=== PATIENT | female | born 1995 | race Caucasian/White ===

== ENCOUNTER 2022-03-07 23:57 | Outpatient (CLI) | payer BC, SELFPAY ==
[2022-03-08 00:11] VITALS: BP 109/78; PULSE 88
[2022-03-08 00:14] VITALS: RESP 16; TEMP 36.8
[2022-03-08 01:08] LABS: Appearance Urine Turbid (Clear); Bilirubin Urine Negative (Negative); Blood Urine Negative (Negative); Color Urine Yellow (Yellow); Glucose Urine Negative (Negative); Ketones Urine Negative (Negative); Leukocyte Esterase Urine 1+ (Negative); Nitrite Urine Negative (Negative); Protein Urine Negative (Negative); Specific Gravity Urine 1.015 (1.000-1.030); Urobilinogen Urine 0.2 (0.2-1.0)
[2022-03-08 01:49] LABS: RBC Urine 0-2 (0-2); Squamous Epithelial Cell Urine Few (None-Few)
[2022-03-08 01:58] LABS: Clue Cells No Clue Cells Seen (None Seen); Trichomonas No Trichomonas Seen (None Seen); Yeast No Yeast Seen (None Seen)
[2022-03-08] MEDS: LACTATED RINGERS 1000 ML 1,000 ML IV (02:56)
[2022-03-08] MEDS: BETAMETHASONE SOD PHOS/ACETATE 6 MG/ML ML 12 MG IM (04:37)
--- NOTE | 2022-03-08 08:01 | PC.OBNST ---
NST Note NST Note Start: 03/08/22 00:04 Freq: ONCE Status: Active Protocol: Document 03/08/22 07:57 MMB (Rec: 03/08/22 08:00 MMB [id number]) NST Note 2 Para (# of births) 1 EDC 04/25/22 Patient Presented with Complaint(s) of Contractions/cramping Reactive Yes Appropriate for Gestational Age Yes RN Kandace Downey RN Date 03/08/22 Reactive Yes Appropriate for Gestational Age Yes RN Dyana Velasco RN Date 03/08/22 OB NST charge Yes Provider Evaluation of EFM Strip: Reactive: [] Appropriate for Gestational Age: [] Comments:
[2022-03-08 15:05] LABS: Fetal Fibronectin* Negative (Negative)
[2022-03-08 23:24] LABS: Strep B DNA Probe NEGATIVE (Negative)
== END 2022-03-08 07:06 | disposition home or self-care (01) ==
LOC: OB OUT 23:58 → OB 03-08 00:03
PROVIDERS: PCP Obstetrics & Gynecology; Visit Provider Family Medicine
DX: O47.03 False labor before 37 completed weeks of gestation, third trimester (principal); Z36.85 Encounter for antenatal screening for Streptococcus B; Z3A.33 33 weeks gestation of pregnancy
CPT/HCPCS: 59025; 81003; 81015; 84112; 87081; 87210; 87653; 96360; 96372; J0702; J7120

== ENCOUNTER 2022-03-09 05:00 | Outpatient (CLI) | payer BC, SELFPAY ==
[2022-03-09] MEDS: BETAMETHASONE SOD PHOS/ACETATE 6 MG/ML ML 12 MG IM (05:00)
== END 2022-03-09 05:10 | disposition home or self-care (01) ==
LOC: OB OUT 07:39 → OB CLI 07:41 → OB 03-10 08:22
PROVIDERS: PCP Obstetrics & Gynecology; Visit Provider Family Medicine
DX: O34.211 Maternal care for low transverse scar from previous cesarean delivery (principal)
CPT/HCPCS: 99211; J0702

== ENCOUNTER 2022-03-24 15:45 | Outpatient (CLI) | payer BC, SELFPAY ==
[2022-03-24] VITALS (7 sets, daily range): BP systolic 99–124; BP diastolic 55–84; PULSE 92–103; RESP 18; TEMP 37.1; O2SAT 97–98
[2022-03-24 16:36] LABS: Appearance Urine Clear (Clear); Bilirubin Urine Negative (Negative); Blood Urine Negative (Negative); Color Urine Yellow (Yellow); Glucose Urine Negative (Negative); Ketones Urine Negative (Negative); Leukocyte Esterase Urine 2+ (Negative); Nitrite Urine Negative (Negative); Protein Urine Negative (Negative); Specific Gravity Urine 1.015 (1.000-1.030); Urobilinogen Urine 0.2 (0.2-1.0)
[2022-03-24 16:40] LABS: Amnisure Rom* Negative
[2022-03-24 16:45] LABS: RBC Urine 0-2 (0-2)
[2022-03-24 16:46] LABS: Bacteria Urine Few; Squamous Epithelial Cell Urine Few (None-Few)
--- NOTE | 2022-03-24 18:24 | PC.OBNST ---
NST Note NST Note Start: 03/24/22 15:58 Freq: ONCE Status: Active Protocol: Document 03/24/22 18:21 MMB (Rec: 03/24/22 18:24 MMB [id number]) NST Note 2 Para (# of births) 1 EDC 04/25/22 Patient Presented with Complaint(s) of Leaking fluid,Decreased movement,Other Other Complaints Sediment in urine with suprapubic pain, loose stools, seeing spots, and blisters. Reactive Yes Appropriate for Gestational Age Yes SANTANA Wiley RN Date 03/24/22 Reactive Yes Appropriate for Gestational Age Yes SANTANA Simental RN OB NST charge Yes Complete NST Note via Write Note Yes The provider's electronic signature indicates the NST is reactive/appropriate for gestational age. *Note to provider: If an addendum is required, open the patient's chart and click on the note under the Nurse/Allied Health tab.
== END 2022-03-24 17:42 | disposition home or self-care (01) ==
LOC: OB OUT 15:50 → OB 15:54
PROVIDERS: PCP Obstetrics & Gynecology; Visit Provider Surgery
DX: O36.8130 Decreased fetal movements, third trimester, not applicable or unspecified (principal); Z3A.33 33 weeks gestation of pregnancy
CPT/HCPCS: 59025; 81003; 81015; 84112; 87086; 99213

== ENCOUNTER 2022-04-16 05:11 | Inpatient (IN) | payer BC, SELFPAY ==
[2022-04-16] VITALS (21 sets, daily range): BP systolic 95–132; BP diastolic 58–87; PULSE 77–142; RESP 15–20; TEMP 36.6–37.2; O2SAT 97–99; BMI 35.9
[2022-04-16] MEDS: ONDANSETRON 2 MG/ML inj 4 MG IV (06:05)
[2022-04-16] MEDS: LACTATED RINGERS 1000 ML 1,000 ML 500 ML IV (06:12)
[2022-04-16 06:17] LABS: SARS PCR* Negative SARS-CoV-2 (Negative)
[2022-04-16 06:19] LABS: Basophils Percent Auto 0.1 % (0.0-3.0); Eosinophils Percent Auto 0.6 % (0.0-7.0); Hematocrit 35.2 % (33.0-51.0); Hemoglobin* 11.7 gm/dL (12.0-16.0); Immature Granulocytes Abs Auto 0.23 K/uL (0.00-0.30); Lymphocytes Percent Auto 13.6 % (20-44); Mean Corpuscular HGB Conc 33 gm/dL (32-36); Mean Corpuscular Hemoglobin 28 pg (26-34); Mean Corpuscular Volume 85 fL (80-100); Monocytes Percent Auto 5.7 % (0.0-11.0); Neutrophils Percent Auto 78.1 % (42.0-72.0); Platelet Count* 210 K/uL (140-440); RDW Coefficient of Variation % 13.9 % (11.5-15.5); Red Blood Count 4.13 m/uL (4.00-5.20); White Blood Count* 12.02 K/uL (4.50-11.00)
[2022-04-16 06:23] LABS: Slide Review Reflex No
[2022-04-16] MEDS: OXYTOCIN 10 UNIT/ML INJ IM (09:03)
[2022-04-16] MEDS: LIDOCAINE 1% MDV 20 ML INJECTION (09:08)
--- NOTE | 2022-04-16 09:34 | P.OBPRC_ITS ---
Procedure Delivery date: 04/16/22 Procedure Done: only Procedure Details: The patient is a 26 year-old admitted on 04/16/2022 at 38 Weeks, 5 Days gestation for spontaneous onset of labor.? Labor began with spontaneous rupture of membranes while the patient was at home at 2:45 a.m, clear fluid. She presented for care at 5:00 a.m. this morning. Cervical exam on admission was 3 cm/80 % effaced/-2 station with membranes ruptured in vertex presentation.? Contractions were every 2-4 minutes.? heart rate demonstrated baseline 150 bpm with moderate variability, + accelerations, - decelerations; a category 1 tracing. ? Labor Analgesia:? None ? Pitocin:? No ? Labor onset:? 0545 ? Complete:? 34 ? Pushing:? 34 ? heart tones during second stage were 120s bpm baseline with variable and some late decelerations to the 80s, followed by good return to baseline. Fetus was in an OP position for most of the 2nd stage. Pushing was done in varied positions, including right lateral recumbent, recumbent, squatting, and hands and knees. ? At 0856 a viable male delivered in vertex OA presentation rotated during the last contraction from OP while the mother was in hands knees position over second-degree midline perineal laceration via spontaneous vaginal delivery.? Infant was placed on maternal abdomen.? Cord was clamped and cut after a 30 second delay.? The was then transferred to the warmer where he received for breaths and CPAP. Nose and mouth were bulb suctioned.? Infant was evaluated by Peds, see note. weight pending.? Apgars pending..? Shoulder dystocia: No.? Nuchal cord: No. ? Placenta delivered spontaneously and complete at 0856 with a 3 vessel cord. ? Mother and were stable after delivery. ? Lacerations:? Second-degree midline perineal, repaired with 3-0 chromic. ? Blood loss: 50 mL. Blood loss measurement type: QBL ? Sponge and needles counts are correct. Events: Previous and Covid Infection in Intrapartal Events: Excessive Bleeding Delivery monitor: external FHT and external uterine Route of delivery: Laceration description: Perineal - 2nd Degree Delivery repair: Chromic (3-0) Estimated blood loss (mL): 50 Anesthesia type: None Disposition: floor [facility] Gender: Male presentation: vertex Placental Delivery Description: Spontaneous (adherant clot suggestive of partial abruption) Cord Description: 3 Vessels
--- NOTE | 2022-04-16 11:56 | W.PM.LDBA ---
Subjective History of Present Illness Time Seen by Provider: 07:05 Date Seen: 04/16/22 Narrative: Patient is being admitted to Labor and Delivery for spontaneous onset of labor. She is a 26 year old at 38 5/7 weeks gestation. Her full history and physical was dictated by [] on []. Please see this for details. [] OB - H&P: Exam Physical Exam: Vital signs: Temp Pulse Resp BP Pulse Ox 97.9 F 142 H 16 122/65 97 04/16/22 07:08 04/16/22 10:51 04/16/22 04:13 04/16/22 10:51 04/16/22 08:46
--- NOTE | 2022-04-16 11:57 | PM.OBHPLI ---
OB - H&P: HPI Labor/Induction History of Present Illness Time Seen by Provider: 07:05 Date Seen: 04/16/22 Chief Complaint: Labor following spontaneous rupture of membranes. Patient desires trial of labor after section. Chief complaint: Labor : 2 Para: 1 Date of last menstrual period: 07/19/21 Estimated date of delivery: 04/25/22 Gestational age based on last menstrual period: 38 Narrative: The patient is a 26 year old 2 para 1001 at 38 5/7 weeks gestation by certain LMP, who presents with labor following spontaneous rupture of membranes. She experienced a gush of clear fluid from the vagina at 2:45 a.m.. Upon her arrival to the center at 5:00 a.m., she was sil at 2-4 minute intervals. History of Present Dating criteria: based on LMP care: good care Ultrasounds: normal 1st trimester US and normal mid trimester US complications: other (History of COVID infection , history of prior low transverse section) complications comment: also anxiety and depression, ocular migraines, subclinical hypothyroism Labs Blood type: A (+) positive Rubella: immune RPR/VDLR: nonreactive GBS status: negative HBsAG: negative Review of Systems Status of ROS: Reports: 10 or more systems reviewed and unremarkable except as noted in History and below Meds Home Medications and Allergies Home Medications Medication Instructions Recorded Confirmed Type ferrous sulfate 325 mg (65 mg mg PO 03/08/22 03/27/22 History iron) tablet,delayed release levothyroxine 25 mcg capsule mcg PO 03/08/22 03/27/22 History magnesium oxide 400 mg (241.3 mg mg DAILY 03/08/22 03/27/22 History magnesium) tablet sertraline 100 mg tablet 150 mg DAILY 03/08/22 03/27/22 History sertraline 50 mg tablet mg DAILY 03/08/22 03/27/22 History multivitamin no.47-iron fum 27 cap PO 03/27/22 03/27/22 History mg-folate no.1 1 mg-dha 300 mg capsule (PNV-DHA) Allergies Allergy/AdvReac Type Severity Reaction Status Date / Time No Known Allergies Allergy Verified 04/16/22 04:51 OB - H&P: Exam Physical Exam: Vital signs: Temp Pulse Resp BP Pulse Ox 97.9 F 142 H 16 122/65 97 04/16/22 07:08 04/16/22 10:51 04/16/22 04:13 04/16/22 10:51 04/16/22 08:46 Narrative: VITAL SIGNS: Noted above. GENERAL APPEARANCE: Alert cooperative white female in mild acute distress with contraction. MOOD AND AFFECT: Normal. CV: Heart regular rate and rhythm. PULM: Lungs clear to auscultation bilaterally. ABDOMEN: Soft, gravid, nontender. Fundal height is consistent with term gestation. The fetus is in a vertex presentation by Yonathan's. : Normal female external genitalia. Cervix was 3 cm dilated, 80% effaced, with vertex at a-2 station at the time of admission per nursing. EXTREMITIES: Without significant edema, nontender bilaterally. NEURO: Intact. OB - Results Labs Labs: Short CBC 04/16/22 Range/Units 05:45 WBC 12.02 H (4.50-11.00) K/uL Hgb 11.7 L (12.0-16.0) gm/dL Hct 35.2 (33.0-51.0) % Plt Count 210 (140-440) K/uL OB - Problem Based A/P Additional Plan (1) Previous delivery affecting , antepartum: Status: Acute (2) Spontaneous onset of labor: Status: Acute Plan Expectant management. Patient desires trial of labor after section is making good progress. Anticipated vaginal delivery. Procedures Vaginal Delivery presentation: vertex
[2022-04-16] MEDS: LEVOTHYROXINE 25 MCG TABLET PO (16:17)
[2022-04-16] MEDS: SERTRALINE 50 MG TABLET 150 MG PO (20:52)
[2022-04-16] MEDS: ACETAMINOPHEN 500 MG TABLET 1000 MG PO (20:53)
[2022-04-17 01:15] VITALS: BP 101/69; PULSE 96; RESP 16; TEMP 36.7; O2SAT 98
[2022-04-17 04:24] VITALS: BP 101/68; PULSE 90; RESP 16; TEMP 36.7
[2022-04-17 07:32] LABS: Hemoglobin* 10.9 gm/dL (12.0-16.0)
[2022-04-17] MEDS: DOCUSATE SODIUM 100 MG CAPSULE PO (07:40)
[2022-04-17] MEDS: LEVOTHYROXINE 25 MCG TABLET PO (07:41)
[2022-04-17 09:59] VITALS: BP 109/78; PULSE 90; RESP 15; TEMP 36.6
--- NOTE | 2022-04-17 10:07 | PM.OBDSVD1 ---
DS: Providers Provider Time Seen by Provider: 10:08 Date Seen: 04/17/22 Date of admission: 04/16/22 05:11 Primary care physician: Anastasiya Webster MD Admitting Clinician: Ronna Bermeo MD Attending Physician on discharge: Jorge Flower MD Date of Discharge: 04/17/22 DS: Diagnosis Discharge Diagnosis (1) Previous delivery affecting , antepartum: Status: Acute (2) Spontaneous onset of labor: Status: Acute (3) Perineal laceration during delivery: Status: Acute Exam Const: Vital Signs, click to edit/add: Vital Signs - 24 hr 04/16/22 10:22 04/16/22 10:51 04/16/22 11:05 Temperature 97.9 F Pulse Rate 112 H 142 H Pulse Rate [Pulse Oximeter] Respiratory Rate 15 Blood Pressure 113/58 L 122/65 Blood Pressure [Ri ght Arm] Pulse Oximetry Oxygen Delivery Me thod 04/16/22 13:00 04/16/22 16:25 04/16/22 20:38 Temperature 98.9 F 98.6 F 98.5 F Pulse Rate Pulse Rate [Pulse Oximeter] 107 H 97 97 Respiratory Rate 15 16 16 Blood Pressure Blood Pressure [Ri ght Arm] 117/78 117/76 108/73 Pulse Oximetry 97 97 Oxygen Delivery Me thod Room Air Room Air Room Air 04/17/22 01:15 04/17/22 04:24 04/17/22 09:59 Temperature 98.0 F 98.0 F 97.9 F Pulse Rate Pulse Rate [Pulse Oximeter] 96 90 90 Respiratory Rate 16 16 15 Blood Pressure Blood Pressure [Ri ght Arm] 101/69 101/68 109/78 Pulse Oximetry 98 Oxygen Delivery Me thod Room Air Room Air Documenting provider has reviewed patient's vital signs: yes Common normals: no apparent distress, healthy appearing and alert HENMT: Common normals: normocephalic Head and scalp: normocephalic Resp: Common normals: normal respiratory effort and no use of accessory muscles Cardio: Common normals: regular rate and peripheral pulses 2+ throughout Rate: regular rate Peripheral pulses: pulses 2+ throughout GI: Common normals: soft to palpation and non-tender Palpation: soft Extremity: Common normals: normal to inspection and full ROM Neuro: Common normals: CN's II-XII intact bilaterally Sensorium/orientation: alert Psych: Common normals: thought process normal and affect normal Thought process: normal thought process OB - DS: Summary Hospital Course Hospital Course: Francisca is a 26 year old now P 2001 who had a 04.16.2022 after SROM clear at 0245 on 04.16.2022. Second-degree perineal laceration repaired; QBL 50mL. Lochia is decreasing, no large clots. Reports minimal uterine or perineal pain. Bladder function normal. No N/V/D. Her male Shabbir was born at 38w4d GA. He required CPAP at , and is doing well now. He is well. Gender: Male Discharge Plan: Home Status at Discharge Cognitive/behavioral status at discharge: Describes mood as stable. Taking sertraline 150mg QD. Time Spent with Patient Time attestation: Total time spent providing and/or coordinating discharge services: Discharge Plan Discharge Disposition: Home, Self-Care Date of Admission: 04/16/22 05:11 Attending Provider on Discharge: Jorge Flower Primary Care Provider: Anastasiya Webster Condition: Stable Anticipated Discharge Date/Time: 04/17/22 10:23 Discharge Medications: New (DME) breast pump [[employer] Double Electric Breast] Device See Rx Instructions .ROUTE Qty: 1 0RF Rx Instructions: As directed Continued PNV-DHA 27 mg iron-1 mg -300 mg capsule PO sertraline 100 mg tablet 150 mg DAILY magnesium oxide 400 mg (241.3 mg magnesium) tablet DAILY ferrous sulfate 325 mg (65 mg iron) tablet,delayed release (DR/EC) PO Label Comments: TAKE ONE TABLET BY MOUTH EVERY DAY WITH A MEAL sertraline 50 mg tablet DAILY levothyroxine 25 mcg capsule PO Discharge Orders: Discharge Order (Routine); Ordered 04/17/22 Ordered By: Jorge Flower Patient Education: OB Vaginal/Breast Feeding Activity Level: Activity as Tolerated Discharge Diet: High Fiber Follow Up Appointments: Ronna Bermeo MD [Staff Physician] - Anastasiya Webster MD [Primary Care Provider] - Forms: [facility] Info Instructions DS:Data Additional Comments Additional comments: Got Tdap . Desires script for breast pump; printed. Will use OTC ibuprofen for perineal and uterine pain. Advised increased dietary fiber and fluids to keep stools soft. Continue dose of levothyroxine until visit. Continue PNV.
== END 2022-04-17 11:15 | disposition home or self-care (01) | DRG 560 ==
LOC: OB OUT 05:14 → OB 05:14
PROVIDERS: Admitting Provider Obstetrics & Gynecology; PCP Obstetrics & Gynecology; Visit Provider Obstetrics & Gynecology
DX: O34.211 Maternal care for low transverse scar from previous cesarean delivery (principal); O70.1 Second degree perineal laceration during delivery; Z86.16 Personal history of COVID-19; O99.284 Endocrine, nutritional and metabolic diseases complicating childbirth; E03.8 Other specified hypothyroidism; O99.344 Other mental disorders complicating childbirth; F41.9 Anxiety disorder, unspecified; F32.A Depression, unspecified; Z3A.38 38 weeks gestation of pregnancy; Z37.0 Single live birth
CPT/HCPCS: 36415; 85018; 85025; 86850; 86900; 86901; 87635; 88307; A9270; J2405; J2590; J7120

== ENCOUNTER 2024-03-11 10:30 | Outpatient (CLI) | payer BC, SELFPAY ==
[2024-03-11 10:54] VITALS: BP 119/60; PULSE 90
[2024-03-11 10:56] VITALS: PULSE 95; O2SAT 97
[2024-03-11 11:47] LABS: Appearance Urine Clear (Clear); Bilirubin Urine Negative (Negative); Blood Urine Negative (Negative); Color Urine Yellow (Yellow); Glucose Urine Negative (Negative); Ketones Urine Negative (Negative); Leukocyte Esterase Urine Negative (Negative); Nitrite Urine Negative (Negative); Protein Urine Negative (Negative); Specific Gravity Urine 1.015 (1.000-1.030); Urobilinogen Urine 0.2 (0.2-1.0)
[2024-03-11 11:57] LABS: Clue Cells No Clue Cells Seen (None Seen); Trichomonas No Trichomonas Seen (None Seen); Yeast No Yeast Seen (None Seen)
--- NOTE | 2024-03-11 12:02 | P.OBLDTN_ITS ---
OB - Triage/Final Diagnosis Visit Information Date Seen: 03/11/24 Narrative: The patient is a 28 year old 3 para 2 at 30.3 weeks gestation with past history of migraine headache, hypothyroidism, prediabetes, who presents with decreased movement. At home, has tried rest, cold beverage, and sugary food to stimulate movement, but did not have results. On the car ride to the hospital, did start noticing more movement. Has felt more here as well. Mom endorses a headache in her occipital region that has been coming and going for a few days. No new visual changes or dizziness (does have vision changes at baseline that have been previously evaluated). No abdominal pain. No changes in swelling. Mom notes that this morning, she felt cold and had shivering, had to take a warm shower, which is atypical for her. This has since resolved. Mom does have hx of hypothyroidism, has had TSH checked a few weeks ago and reports no recent changes in levothyroxine dose. Has had some increased urinary frequency. No dysuria or hematuria. Has also noticed changes in vaginal discharge - seems different color and more discharge. Reactive NST was obtained. UA and wet prep collected and were negative. Mom was given 1000 mg PO Tylenol for headache and felt comfortable with discharge home. Return precautions discussed. Evaluation Laboratory results: Laboratory Tests 03/11/24 Range/Units Unknown Urine Color Yellow (Yellow) Urine Appearance Clear (Clear) Urine pH 7.0 (5.0-8.5) Ur Specific [place] 1.015 (1.000-1.030) Urine Protein Negative (Negative) Urine Glucose (UA) Negative (Negative) Urine Ketones Negative (Negative) Urine Blood Negative (Negative) Urine Nitrite Negative (Negative) Urine Bilirubin Negative (Negative) Urine Urobilinogen 0.2 (0.2-1.0) Ur Leukocyte Esterase Negative (Negative) Vaginal Trichomonas No Trichomonas Seen (None Seen) Vaginal Yeast No Yeast Seen (None Seen) Vaginal Clue Cells No Clue Cells Seen (None Seen) Vital signs: Vital Signs - 24 hr 03/11/24 10:54 03/11/24 10:56 Pulse Rate 90 Blood Pressure 119/60 Pulse Oximetry 97 Comments: Gen: alert, pleasant, NAD Fetus (Single) Heart Rate Baseline: 140 [facility] Variability: Moderate (6-25) Monitor Accelerations: Present Monitor Decelerations: None Final Diagnosis (1) 30 weeks gestation of : Status: Acute Total Time Spent Total Time Spent: 45 minutes spent reviewing chart, seeing patient, reviewing labs, and documenting on day of encounter.
--- NOTE | 2024-03-11 12:43 | PC.OBNST ---
NST Note NST Note Start: 03/11/24 10:43 Freq: ONCE Status: Active Protocol: Document 03/11/24 12:41 CUDDYH (Rec: 03/11/24 12:42 CUDDYH [id number]) NST Note 3 Para (# of births) 2 EDC 05/17/24 Gestational Age In Weeks & Days 30 Weeks & 3 Days Patient Presented with Complaint(s) of Decreased movement Reactive Yes Appropriate for Gestational Age Yes RN Yazmin Velasco RN Date 03/11/24 Reactive Yes Appropriate for Gestational Age Yes RN Dr. Lovell DO Date 03/11/24 OB NST charge Yes Complete NST Note via Write Note Yes The provider's electronic signature indicates the NST is reactive/appropriate for gestational age. *Note to provider: If an addendum is required, open the patient's chart and click on the note under the Nurse/Allied Health tab.
== END 2024-03-11 11:58 | disposition home or self-care (01) ==
LOC: OB OUT 10:31 → OB 10:34
PROVIDERS: Visit Provider Family Medicine
DX: O36.8130 Decreased fetal movements, third trimester, not applicable or unspecified (principal); Z3A.30 30 weeks gestation of pregnancy
CPT/HCPCS: 59025; 81003; 87210; G0463

== ENCOUNTER 2024-03-27 11:33 | Outpatient (CLI) | payer BC, SELFPAY ==
[2024-03-27 11:37] VITALS: PULSE 80; O2SAT 98
[2024-03-27 11:43] VITALS: BP 126/78; PULSE 97
[2024-03-27 12:20] VITALS: RESP 16; TEMP 36.7
--- NOTE | 2024-03-27 12:24 | PC.OBNST ---
NST Note NST Note Start: 03/27/24 11:46 Freq: ONCE Status: Active Protocol: Document 03/27/24 12:22 BRYCE (Rec: 03/27/24 12:24 BRYCE Desktop) NST Note 3 Para (# of births) 2 EDC 05/17/24 Gestational Age In Weeks & Days 32 Weeks & 5 Days Patient Presented with Complaint(s) of Other Other Complaints complaints of weak, faint, dizzy feeling with episodes of racing heart rate and feeling like going to have a panic attack. C/o Left abdominal itching. Reactive Yes Appropriate for Gestational Age Yes RN Maricruz Preciado RN Date 03/27/24 Reactive Yes Appropriate for Gestational Age Yes SANTANA Velasco RN Date 03/27/24 OB NST charge Yes Complete NST Note via Write Note Yes The provider's electronic signature indicates the NST is reactive/appropriate for gestational age. *Note to provider: If an addendum is required, open the patient's chart and click on the note under the Nurse/Allied Health tab.
[2024-03-27 13:03] LABS: Hemoglobin* 11.6 gm/dL (12.0-16.0)
[2024-03-27 13:24] LABS: Alanine Aminotransferase* 13 U/L (4-35); Aspartate Amino Transferase* 19 U/L (12-35)
[2024-03-28 23:58] LABS: Bile Acids, Total 4 umol/L (0-10)
== END 2024-03-27 12:30 | disposition home or self-care (01) ==
LOC: OB OUT 11:34 → OB 11:34
PROVIDERS: Visit Provider Family Medicine
DX: O26.893 Other specified pregnancy related conditions, third trimester (principal); R42 Dizziness and giddiness; I49.9 Cardiac arrhythmia, unspecified; Z3A.32 32 weeks gestation of pregnancy
CPT/HCPCS: 36415; 59025; 82239; 84443; 84450; 84460; 85018; G0463

== ENCOUNTER 2024-05-12 11:37 | Inpatient (IN) | payer BC, SELFPAY ==
[2024-05-12] VITALS (17 sets, daily range): BP systolic 113–133; BP diastolic 60–88; PULSE 71–94; RESP 16–17; TEMP 36.8–37.5; O2SAT 97; BMI 37.0
--- NOTE | 2024-05-12 12:29 | P.OBHP_ITS ---
OB - H&P: HPI Labor/Induction History of Present Illness Time Seen by Provider: 10:30 Date Seen: 05/12/24 Chief Complaint: The patient is a 28 year old 3 para 2 at 39.2 weeks gestation by LMP and consistent with 6 week ultrasound, who presents with for elective IOL given favorable cervix and long dstance from hospital. She is a TOLAC. Had successful with 2nd. First baby was delivered by c- section for breech position. Chief complaint: Elective IOL : 3 Para: 2 Date of last menstrual period: 08/11/23 Estimated date of delivery: 05/17/24 Gestational age based on last menstrual period: 39 Indications for induction: other (advanced dilation with TOLAC/elective) Narrative: Francisca Christensen is a 28 year old 3 para 2 at 39.2 weeks gestation by LMP and consistent with 6 week ultrasound, who presents with for elective IOL given favorable cervix and long dstance from hospital. She has been sil a lot at home. No gushes of fluid or bleeding. Reports normal movement. She is a TOLAC. Had successful with 2nd. First baby was delivered by c- section for breech position. Last growth showed 48%ile. She had growth restriction 6%ile that resolved History of Present Dating criteria: based on LMP (and 6 week US) care: none Ultrasounds: normal 1st trimester US and abnormal US findings Abnormal ultrasound findings: had growth restriction that resolved. Most recent growth was 28%ile. Narrative: Subclinical hypothyroidism, visual snow syndrome, anxiety Labs Blood type: A (+) positive Rubella: immune RPR/VDLR: nonreactive GBS status: negative HBsAG: negative Review of Systems Status of ROS: Reports: 10 or more systems reviewed and unremarkable except as noted in History and below Meds Home Medications and Allergies Home Medications ?Medication ?Instructions ?Recorded ?Confirmed ?Type levothyroxine 25 mcg capsule 25 mcg PO ONCE 03/08/22 05/12/24 History sertraline 100 mg tablet 200 mg PO DAILY 03/08/22 05/12/24 History multivitamin no.47-iron fum 27 1 cap PO ONCE 03/27/22 05/12/24 History mg-folate no.1 1 mg-dha 300 mg capsule (PNV-DHA) Allergies Allergy/AdvReac Type Severity Reaction Status Date / Time No Known Allergies Allergy Verified 05/12/24 11:56 OB - H&P: Exam Physical Exam: Vital signs: Temp Pulse Resp BP 98.6 F 93 16 113/68 05/12/24 12:00 05/12/24 12:00 05/12/24 12:00 05/12/24 12:00 Constitutional: Constitutional: no acute distress Routine HEENT Exam: Head: Present atraumatic Routine Neck Exam: Neck: Present full ROM Detailed Neck Exam: Thyroids: Thyroid: Present normal Routine Respiratory Exam: Respiratory: Present CTA bilaterally Routine Cardiovascular Exam: Cardiovascular: RRR, S1 and S2 Detailed Abdominal Exam: Comments: Gravid, nontender Detailed Labor and Delivery Exam: Patient Gravid: Yes Dilation (cm): 4 Effacement (%): 70 Cervix position: mid Consistency: medium Cervical ripeness score: 7 Tachysystole: No Fetus (Single): Station: -2 Amniotic Membrane Status: intact Heart Rate Baseline: 140 Monitor Accelerations: Present Monitor Decelerations: None Long-Term Variability: Moderate (6-25) Routine Back/Spine/Pelvis Exam: Back/Spine: full ROM Routine Neurological Exam: Present alert and oriented X3 OB - Problem Based A/P Additional Plan (1) History of delivery: Problem details: had successful with last , had TOLAC consult with Dr. Camacho. Planning TOLAC Status: Acute (2) Depression: Problem details: - on zoloft Status: Acute (3) Anxiety: Problem details: - on zoloft Status: Acute (4) Subclinical hypothyroidism: Problem details: - stable on synthroid Status: Acute (5) Prediabetes: Problem details: - passed glucose tolerance test Status: Acute (6) Term : Status: Acute (7) Hx successful (vaginal after ), currently : Status: Acute Plan - elective IOL given significant contractions yesterday, 4 cm and concern of living far from hospital with TOLAC. - Pitocin, AROM if needed. - Anticipate . Dr. LUANNE GAITAN'yakov Delivery/Labor/Induction Plan Plan: induction Induction method: per pitocin protocol
[2024-05-12] MEDS: LACTATED RINGERS 1000 ML 1,000 ML 125 ML IV (13:34)
[2024-05-12] MEDS: OXYTOCIN 30 unit/500 ML in NS 30 UNIT/500 ML BAG IVPB (13:36)
--- NOTE | 2024-05-12 17:06 | P.OBPN_ITS ---
Subjective Time Seen by Provider: 17:07 Date Seen: 05/12/24 Narrative: Patient is feeling contractions, but still able to breathe through them. Objective Exam: Moving around room, comfortable Vital Signs: Last Vital Signs Temp 98.3 F 05/12/24 16:34 Pulse 82 05/12/24 16:34 Resp 16 05/12/24 16:34 BP 133/88 05/12/24 16:34 Pulse Ox 97 05/12/24 16:24 Pelvic Exam Dilation (cm): 4 Effacement (%): 70 Station: -2 Contractions Monitor mode: External Contraction Frequency: 2 Contraction pattern: Regular Contraction intensity: Moderate Pitocin Rate (mU/min): 4 Assessment Assessment: induction ongoing Station: -2 Amniotic Membrane Status: AROM (clear fluid now) Status: Category l Heart Rate Baseline: 140 [employer] Variability: Moderate (6-25) Monitor Accelerations: Present Monitor Decelerations: Variable (variable decel while lying on back. ) Plan Plan: - AROM now with clear fluid (moderate amount) - anticipate - titrate pitocin as needed.
[2024-05-12] MEDS: OXYTOCIN 30 unit/500 ML in NS 30 UNIT/500 ML BAG 300 UNIT IVPB (19:45)
--- NOTE | 2024-05-12 20:26 | W.PM.VAGDE_ITS ---
OB Procedure Vag Delivery Mother Details Mother Details: The patient is a 28 year-old, 3, Para 2, admitted on 05/12/24 at 39.2 weeks gestation for elective IOL for TOLAC. : 3 Para: 3 Weeks Gestation: 39.2 Admission Date: 05/12/24 Additional Details Amniotic Membrane Status: AROM Amniotic Membrane Rupture Date: 05/12/24 Amniotic Membrane Rupture Time: 16:52 Amniotic Membrane Fluid Description: Clear Analgesia/Anesthesia Type: None Waterbirth: No Pitcoin: Yes Intrapartal Events: Labor Induction and Precipitous Labor <3 Hrs Induction Method: per pitocin protocol and AROM Labor Onset: 19:00 Complete: 19:33 Pushin:34 Heart: heart tones during second stage had deep variables and recovered between contractions to rate of 100-110. Delivery Details Delivery Date: 05/12/24 Delivery Time: 19:43 Route of delivery: Infant Gender: Female Viability: Alive; Heart Rate Present Position at Delivery: OA Delivery Details: Patient was admitted for IOL (elective) due to advanced dilation and history of fast labor. Patient's pitocin was started. We did AROM of moderate amount of clear fluid. Patient progressed well. Became active at 1900, requesting epidural. However, reported need to push at 1933 before epidural was placed. Patient was complete and began pushing. Patient pushed very effectively, delivering a viable female infant via over intact perineum. Nuchal cord w as reduced x 2. Infant was placed on maternal abdomen.? Cord was clamped and cut and baby was taken to warmer. Please see my note in baby's chart for details of resuscitation. After resuscitation, I returned to Mom's bedside to deliver placenta. 1 Minute Interval Total Score: 7 5 Minute Interval Total Score: 7 10 Minute Interval Total Score: 8 Additional Details Shoulder Dystocia: No Placenta Delivery Time: 20:03 Placental Delivery Description: Spontaneous Procedure Done: Global Blood Loss: 245 Laceration: Perineal - 1st Degree Blood Loss Measurement Type: QBL Bakri Used: No Sponge/Need Count Correct: Yes Cord Vessel Description: 3 Vessels, Nuchal Cord (x2) and Reduced Event Summary Status: Mother and infant were stable after delivery. Disposition: no change
[2024-05-12] MEDS: miSOPROStoL 800 MCG/4 TABLET PR (21:02)
[2024-05-13 01:20] VITALS: BP 109/63; PULSE 71; RESP 15; TEMP 36.9; O2SAT 98
[2024-05-13 04:30] VITALS: BP 109/60; PULSE 76; RESP 16; TEMP 36.9; O2SAT 97
[2024-05-13 06:22] LABS: Hemoglobin* 11.1 gm/dL (12.0-16.0)
[2024-05-13 08:33] VITALS: BP 124/82; PULSE 89; RESP 16; TEMP 37.4
--- NOTE | 2024-05-13 08:35 | PM.OBPNVD1 ---
OB - PN:Subj Subjective Time Seen by Provider: 08:35 Date Seen: 05/13/24 Patient comments OB post-: no complaints, pain well controlled and tolerating diet [facility] infant status: and doing well [facility] feeding status: exclusively OB - PN: Obj Exam Physical Exam: Vital signs: Temp Pulse Resp BP Pulse Ox O2 Del Method 99.3 F 89 16 124/82 97 Room Air 05/13/24 08:33 05/13/24 08:33 05/13/24 08:33 05/13/24 08:33 05/13/24 04:30 05/13/24 04:30 Constitutional: Constitutional: no acute distress Routine HEENT Exam: Head: Present atraumatic and normal inspection Routine Respiratory Exam: Respiratory: Present CTA bilaterally Routine Cardiovascular Exam: Cardiovascular: Present RRR, S1 and S2; Absent murmur Routine Abdominal Exam: Fundus: Present firm (at 2 under umbilicus) Routine Extremities Exam: Extremities: Absent calf tenderness Routine Neurological Exam: Neurological: Present alert and oriented X3 Routine Psychiatric Exam: Psychiatric: Present normal affect OB - PN: Obj Data Labs Labs: Laboratory Results - last 24 hr 05/13/24 06:04 Hgb 11.1 L OB - PN: A/P Delivery Assessment and Plan (1) History of delivery: Problem details: Had 2nd successful Status: Acute (2) Depression: Problem details: - on zoloft Status: Acute (3) Anxiety: Problem details: - on zoloft Status: Acute (4) Subclinical hypothyroidism: Problem details: - stable on synthroid Status: Acute (5) Prediabetes: Problem details: - passed glucose tolerance test Status: Acute (6) Term : Status: Acute (7) (vaginal after ): Problem details: Had 2nd successful Status: Acute Plan day: 1 Plan: routine care Comments: Doing well, will likely discharge to home tomorrow Total time spent: 15
[2024-05-13 13:58] VITALS: BP 117/74; PULSE 87; RESP 16; TEMP 36.8
[2024-05-13] MEDS: IBUPROFEN 600 MG TABLET PO (14:07)
[2024-05-13 17:25] VITALS: BP 126/86; PULSE 76; RESP 16; TEMP 36.6
[2024-05-13] MEDS: SERTRALINE 100 MG TABLET 200 MG PO (18:55)
[2024-05-13 22:16] LABS: Rapid Plasma Reagin (RPR) Non Reactive (Non Reactive)
[2024-05-14] VITALS: BP 115/75; PULSE 75; RESP 15; TEMP 36.7; O2SAT 97
--- NOTE | 2024-05-14 07:50 | PM.OBDSVD1 ---
DS: Providers Provider Time Seen by Provider: 07:50 Date Seen: 05/14/24 Date of admission: 05/12/24 11:37 Primary care physician: Sravani Moody MD Admitting Clinician: Sravani Moody MD Attending Physician on discharge: Sravani Moody MD Date of Discharge: 05/14/24 DS: Diagnosis Discharge Diagnosis (1) (vaginal after ): Status: Acute Problem details: Had 2nd successful (2) Term : Status: Acute (3) Subclinical hypothyroidism: Status: Acute Problem details: - stable on synthroid (4) Prediabetes: Status: Acute Problem details: - passed glucose tolerance test (5) Depression: Status: Acute Problem details: - on zoloft (6) Anxiety: Status: Acute Problem details: - on zoloft Exam Const: Vital Signs, click to edit/add: Vital Signs - 24 hr 05/13/24 08:33 05/13/24 13:58 05/13/24 17:25 Temperature 99.3 F 98.2 F 97.9 F Pulse Rate [Pulse Oximeter] 89 87 76 Respiratory Rate 16 16 16 Blood Pressure [Le ft Arm] 124/82 117/74 126/86 Pulse Oximetry Oxygen Delivery Me thod Room Air Room Air 05/14/24 00:00 Temperature 98.1 F Pulse Rate [Pulse Oximeter] 75 Respiratory Rate 15 Blood Pressure [Le ft Arm] 115/75 Pulse Oximetry 97 Oxygen Delivery Me thod Room Air Common normals: no apparent distress HENMT: Common normals: normocephalic Head and scalp: normocephalic Neck & C-Spine: Common normals: full ROM Resp: Common normals: normal respiratory effort, no retractions and clear to auscultation bilaterally Auscultation: clear to auscultation bilaterally Cardio: Common normals: regular rate, regular rhythm, S1 normal heart sound and S2 normal heart sound Rate: regular rate Rhythm: regular rhythm Heart sounds: S1 normal and S2 normal GI: Common normals: Normal to inspection, nondistended, normoactive bowel sounds present Inspection: normal to inspection Auscultation: normoactive bowel sounds Other: Fundus firm, nontender, 2 below umbilicus Extremity: Common normals: no pedal edema Skin: Common normals: no rashes or lesions noted General skin exam: no rashes or lesions noted OB - DS: Summary Hospital Course Hospital Course: The patient is a 28 year old G 3 P 3 at 39.2 weeks gestation that was admitted to the Center on 05/12/24 for IOL (elective). She had an uncomplicated delivery. She delivered a viable female infant. She is breast feeding. the patient has done well. Peripartum Data delivery method: Laceration description: None complications: none [place] Gender: Female Infant Discharge Plan: Home Status at Discharge Functional status at discharge: independent ambulation Overall status at discharge: patient is back to baseline Time Spent with Patient Time attestation: Total time spent providing and/or coordinating discharge services: Time spent: Less than 30 minutes Discharge Plan Discharge Disposition: Home, Self-Care Date of Admission: 05/12/24 11:37 Attending Provider on Discharge: Sravani Moody Primary Care Provider: Provider,Not a Local Condition: Improved Anticipated Discharge Date/Time: 05/14/24 07:45 Discharge Medications: Continued PNV-DHA 27 mg iron-1 mg -300 mg capsule 1 cap PO ONCE sertraline 100 mg tablet 200 mg PO DAILY levothyroxine 25 mcg capsule 25 mcg PO ONCE Discharge Orders: Discharge Order (Routine); Ordered 05/14/24 Ordered By: Sravani Moody Consulting provider completed their portion of the discharge: No Patient Education: OB Vaginal/Breast Feeding Activity Level: No Restrictions Activity Detail: Pelvic rest, nothing in the vagina x 6 weeks Discharge Diet: Regular Follow Up Appointments: Provider,Not a Local [Primary Care Provider] - Sravani Moody MD [Staff Physician] - Forms: [facility] Info Instructions Discharge Comments: Please schedule [address] Moody[address] We can place an IUD at 8 weeks
[2024-05-14] MEDS: IBUPROFEN 600 MG TABLET PO (08:07)
[2024-05-14] MEDS: DOCUSATE SODIUM 100 MG CAPSULE PO (08:08)
[2024-05-14 08:09] VITALS: BP 122/80; PULSE 94; RESP 18; TEMP 37.3; O2SAT 97
[2024-05-14 11:44] VITALS: BP 119/78; PULSE 88; RESP 16; TEMP 36.9; O2SAT 97
== END 2024-05-14 12:06 | disposition home or self-care (01) | DRG 560 ==
PROVIDERS: Admitting Provider Family Medicine; Visit Provider Family Medicine
DX: O34.219 Maternal care for unspecified type scar from previous cesarean delivery (principal); O70.0 First degree perineal laceration during delivery; O99.284 Endocrine, nutritional and metabolic diseases complicating childbirth; E03.8 Other specified hypothyroidism; O99.892 Other specified diseases and conditions complicating childbirth; R73.03 Prediabetes; Z3A.39 39 weeks gestation of pregnancy; Z37.0 Single live birth
CPT/HCPCS: 36415; 85018; 86592; A9270; J7120